=== PATIENT | male | born 1965 | race Caucasian/White ===

== ENCOUNTER 2018-04-26 00:19 | Outpatient (CLI) | payer MEDICAID, SELFPAY ==
--- NOTE | 2018-04-26 13:00 | ETT_ITS ---
*[facility]* *[facility]* [address] [place] [address] Stress Electrocardiography Dimitri protocol Date of study: 04/26/2018 *PATIENT PRESENTATION* Height: 170.2cm (67in) Blood Pressure: Weight: 81.4kg (179lb) BSA: 1.98m^2 Referring physician: Andres Atwood Ordering physician: Andres Atwood Impressions: Normal study after maximal exercise. Summary: 1. Stress: The target heart rate was achieved. Indication: R07.9. History: REASON FOR VISIT: PRE-OP SCREEN FOR A PLANNED TOOTH EXTRACTION ON TUESDAY MAY 01, 2018 IN [facility]. POSITIVE HISTORY HYPERTENSION PT WAS STARTED ON AMLODIPINE YESTERDAY. PT REPORTS OF ONE EPISODE THIS WINTER OF NON RADIATING CHEST PRESSURE SOON AFTER SHOVELING WITHOUT ANY ASSOCIATED SYMPTOMS PT WONDERS IF IT WAS MUSCLE STRAIN. Risk factors: Hypertension. ALLERGIES: NO KNOWN ALLERGIES. MEDICATIONS: AMOXICILLIN 500 MG TID UNTILL GONE FOR A CURRENT INFECTION. ASPIRIN 81 MG A DAY. AMLODIPINE BESYLATE 5 MG ONCE A DAY. NITROGLYCERIN 0.4 MG SL PRN. Protocol: Dimitri protocol. Baseline ECG: SINUS RHYTHM. HR 81 BPM. Stress protocol: + +---+ + !Stage !HR !BP (mmHg) ! + +---+ + !Baseline supine !81 !132/88 (103)! + +---+ + !Baseline standing !81 !132/88 (103)! + +---+ + !Stage I; 1.7mph, 10degrees; 3 min !114!140/90 (107)! + +---+ + !Stage II; 2.5mph, 12degrees; 3 min !118!132/90 (104)! + +---+ + !Stage III; 3.4mph, 14degrees; 3 min!132!160/95 (117)! + +---+ + !Immediate post stress !89 !140/80 (100)! + +---+ + !Recovery; 3 min !92 !150/94 (113)! + +---+ + !Recovery; 6 min !92 !138/90 (106)! + +---+ + * Stress results: Maximal heart rate during stress was 179bpm (108% of maximal predicted heart rate). The maximal predicted heart rate was 166bpm. The target heart rate was achieved. The rate-pressure product for the peak heart rate and blood pressure was 99400aq Hg/min. Stress ECG: TREADMILL PORTION OF STRESS TEST ENDED IN 9 MINUTES & 32 SECONDS BECAUSE OF SHORTNESS OF BREATH AND LEG FATIGUE. HEART RATE AND BLOOD PRESSURE RESPONSE TO EXERCISE. MAX HR = 179 % OF TARGET = 107 RARE PVC. APPROXIMATE METS ACHIEVED = 11.03 NO ANGINA NO SIGNIFICANT ST SEGMENT CHANGES AVERAGE FUNCTIONAL CAPACITY FOR EXERCISE The stress ECG is negative. Study data: Alejandra Martinez MD supervised and was readily available during the procedure. This study was interpreted by [facility]. Study status: Routine. Consent: The risks, benefits, and alternatives to the procedure were explained to the patient and informed consent was obtained. Procedure: Initial setup. A baseline ECG was recorded. Surface ECG leads and manual cuff blood pressure measurements were monitored. Heart sounds: Normal. Lung sounds: Normal. Treadmill exercise testing was performed using the Dimitri protocol. Study completion: The patient tolerated the procedure well and was discharged from the lab. Discharge: The patient left the laboratory in stable condition. Birthdate: Patient birthdate: 1965. Sex: Gender: male. Study date: Study date: 04/26/2018. Study time: 01:00 PM. Signature Documentation: The Stress ECG portion of this study was interpreted by Alejandra Martinez MD. Electronically signed by Alejandra Martinez 04/26/2018 14:44
== END 2018-04-26 00:39 ==
PROVIDERS: PCP Nurse Practitioner Family; Visit Provider Nurse Practitioner Family
DX: R07.9 Chest pain, unspecified (principal); I20.9 Angina pectoris, unspecified; I10 Essential (primary) hypertension
CPT/HCPCS: 93017

== ENCOUNTER 2018-04-27 09:08 | Outpatient (REF) | payer MEDICAID, SELFPAY ==
[2018-04-27 12:49] LABS: Abs Immature Grans 0.02 k/cumm (0.0-0.09); Absolute Basophil Count 0.04 k/cumm (0.0-0.2); Absolute Eosinophil Count 0.19 k/cumm (0.0-0.7); Absolute Lymphocyte Count 1.81 k/cumm (1.2-3.4); Absolute Monocyte Count 0.48 k/cumm (0.11-0.7); Absolute Neutrophil Count 3.48 k/cumm (1.2-6.7); Basophils % 0.7; Eosinophils % 3.2; HCT 45.7 % (40.0-50.0); HGB 15.3 g/dL (13.5-17.5); Immature Grans % 0.3; Lymphocytes % 30.1; Mean Corp. HGB Concentration 33.5 g/dL (32.0-36.0); Mean Corpuscular Volume 86.6 fL (80-95); Mean Platelet Volume 9.2 fL (8.0-11.0); Neutrophils % 57.7; Platelet Count 290 x1000/uL (130-400); RBC 5.28 m/cumm (4.50-6.00); RBC Distribution Width 13.1 % (11.8-14.1); White Blood Cell Count 6.02 k/cumm (4.4-10.8)
[2018-04-27 13:14] LABS: Anion Gap 8.2 mmol/L (3-11); BUN 17 mg/dL (7-18); CO2 29.8 mmol/L (21.0-32.0); CREATININE 1.19 mg/dL (0.70-1.30); Calcium 9.3 mg/dL (8.5-10.1); Chloride 103 mmol/L (98-107); Cholesterol 173 mg/dL (50-200); Glucose 106 mg/dL (70-100); HDL Cholesterol 54 mg/dL (40-60); LDL CHOLESTEROL 105 mg/dL (<100); Potassium 4.5 mmol/L (3.5-5.1); Sodium 141 mmol/L (136-145); Triglyceride 47 mg/dL (30-150)
== END 2018-04-27 09:28 ==
LOC: NCHCN 09:08
PROVIDERS: PCP Nurse Practitioner Family; Visit Provider Nurse Practitioner Family
DX: I20.9 Angina pectoris, unspecified (principal); R03.0 Elevated blood-pressure reading, without diagnosis of hypertension; Z00.00 Encounter for general adult medical examination without abnormal findings
CPT/HCPCS: 80048; 80061; 83721; 85025

== ENCOUNTER 2021-04-30 21:37 | Outpatient (REF) | payer MEDICAID, SELFPAY ==
[2021-04-30 20:27] LABS: ALT 27 U/L (16-63); AST 13 U/L (15-37); Albumin 4.1 g/dL (3.4-5.0); Alkaline Phosphatase 80 U/L (46-116); BUN 14 mg/dL (7-18); Bilirubin, Total 0.3 mg/dL (0.2-1.0); Calcium 9.4 mg/dL (8.5-10.1); Calculated LDL 132 mg/dL (<100); Chloride 102 mmol/L (98-107); Cholesterol 202 mg/dL (<200); Glucose 101 mg/dL (74-106); HDL Cholesterol 56 mg/dL (40-60); Potassium 4.1 mmol/L (3.5-5.1); Sodium 138 mmol/L (136-145); Total Protein 8.2 g/dL (6.4-8.2); Triglyceride 72 mg/dL (<150)
[2021-05-03 10:39] LABS: HIV-1/2 Ag & Ab Screen Negative (Negative)
[2021-05-03 10:45] LABS: Hepatitis C Ab w Rflx HCV PCR Negative (Negative)
== END 2021-04-30 21:38 | disposition home or self-care (01) ==
LOC: LBN 21:37
PROVIDERS: PCP Nurse Practitioner Family; Visit Provider Nurse Practitioner Family
DX: I10 Essential (primary) hypertension (principal); Z11.4 Encounter for screening for human immunodeficiency virus [HIV]; Z11.59 Encounter for screening for other viral diseases
CPT/HCPCS: 80053; 80061; 86803; 87389

== ENCOUNTER → 2022-03-18 18:43 | Outpatient (CLI) | payer MEDICAID, SELFPAY ==
--- NOTE | 2022-03-18 | DI.RAD_ITS ---
Exam(s) XR SHOULDER LT COMPLETE 2+V EXAM: XR SHOULDER LT COMPLETE 2+V CLINICAL HISTORY: pain in left shoulder. TECHNIQUE: 2D digital imaging was performed of the left shoulder. Four images were obtained. AP, G rashey, Y-view and axillary views were obtained. COMPARISON: No exams were available for comparison FINDINGS: BONES: No acute fracture is present. No bony destructive lesion is seen. JOINTS: No dislocation present. Mild degenerative changes of the acromioclavicular joint. SOFT TISSUE: Normal. IMPRESSION: No acute abnormality. DATA REPOSITORY: RADIATION DOSE DELIVERED:
--- NOTE | 2022-03-18 19:03 | DI.VRAD_ITS ---
PROCEDURE INFORMATION: Exam: XR Left Shoulder Exam date and time: 03/18/2022 6:49 PM Age: 56 years old Clinical indication: Other: Pain TECHNIQUE: Imaging protocol: Radiologic exam of the Left shoulder. Views: 2 or more views. COMPARISON: No relevant prior studies available. FINDINGS: Bones/joints: Mild hypertrophic change of the AC joint. The glenohumeral joint appears normal. No fracture or dislocation is noted. Soft tissues: Normal. IMPRESSION: Mild AC joint DJD. No acute fracture or dislocation. Dictated and Authenticated by: Goldy Macdonald MD. Ordering:U Unknown Unknown
== END ==
PROVIDERS: PCP Physician Assistant Medical; Visit Provider Physician Assistant Medical
DX: M25.512 Pain in left shoulder (principal); M25.812 Other specified joint disorders, left shoulder
CPT/HCPCS: 73030

== ENCOUNTER 2022-04-07 12:12 | Outpatient (CLI) | payer MEDICAID, SELFPAY ==
--- NOTE | 2022-04-07 | DI.RAD_ITS ---
Exam(s) XR CERVICAL SP COMP W FLEX/EXT EXAM: XR CERVICAL SP COMP W FLEX/EXT CLINICAL HISTORY: CERVICAL RADICULOPATHY-BILAT ARMS, M54.12, CERVICAL PAIN, M54.2. TECHNIQUE: 2D digital imaging was performed. COMPARISON: No exams were available for comparison FINDINGS: Seven views: No evidence of fracture, listhesis, nor offset of the spinal laminar line. All the disc spaces exhib it normal height. Facets unremarkable. Oblique views reveal no Luschka joint osteophytes. There ar e no cervical ribs. No osseous lesions. Cervical curvature is maintained. IMPRESSION: No significant radiograph findings in the cervical spinal column. DATA REPOSITORY: RADIATION DOSE DELIVERED:
== END 2022-04-07 12:32 ==
LOC: DI 12:14
PROVIDERS: PCP Physician Assistant Medical; Visit Provider Nurse Practitioner Family
DX: M54.12 Radiculopathy, cervical region (principal); M54.2 Cervicalgia
CPT/HCPCS: 72052

== ENCOUNTER 2022-04-27 01:30 | Outpatient (CLI) | payer MEDICAID, SELFPAY ==
--- NOTE | 2022-04-27 15:15 | DI.MRI_ITS ---
Exam(s) MR UPPER JOINT LT WO EXAM: MR UPPER JOINT LT WO CLINICAL HISTORY: PAIN IN LT SHOULDER, M25.512; RADICULOPATHY AFFECTING ARM, M54.10 TECHNIQUE: Multiplanar multisequence MRI of the shoulder was performed. COMPARISON: CR,XR XR SHOULDER LT COMPLETE 2+V from 03/18/2022 FINDINGS: MARROW:There is no evidence of fracture, Hill-Sachs deformity, nor ominous osseous lesions. ROTATOR CUFF MECHANISM: AC JOINT/ACROMIUM: There are moderate degenerative changes in the AC joint.. There is no evidence of os acromiale. Supraspinatus: There is signal abnormality in supraspinatus tendon. There is an area focal signal ab normality in the tendon just above the greater tuberosity foot pad insertional aspect which traverses most of the thickness of the tendon at this level and is either a high-grade partial thickness tear with a probable small component full-thickness tear given that there is some fluid in the overlying s ubdeltoid bursa. There is no retraction musculotendinous junction. No muscle atrophy. Infraspinatus: There is some cystic change at the musculotendinous junction but no high-grade tear. No muscle atrophy. Teres Minor: Intact. No evidence of tear nor muscle atrophy. Subscapularis/anterior cuff: Intact. No abnormal signal at the level of the multipennate insertional fibers. No significant tear nor atrophy. BICEPS TENDON: Normal position within the intertubercular groove. No tear evident. Small amount of fluid noted in the biceps tendon sheath. LABRUM: No abnormal signal within the superior labrum posterior to the biceps insertion site. Ultrasound Applications Specialist ior labrum also appears intact. There is some signal abnormality in the anterior superior labrum con sistent with probable tearing at this level. LABROLIGAMENTOUS/CAPSULAR COMPLEX: There is no evidence of avulsion of the anterior-inferior labrum, capsule, inferior glenohumeral liga ment complex nor disruption of the scapular periosteum to suggest the presence of a Bankart lesion. Also no evidence of obvious Bankart lesion variants. GLENOHUMERAL JOINT: No joint effusion nor obvious loose intra-articular bodies. No chondral defects. No osteophytes. No degenerative subarticular cysts. No evidence of capsular tear. The inferior gle nohumeral ligament is intact. QUADRILATERAL SPACE: No evidence of mass in the region of the axillary nerve and dorsal circumflex hu meral vessels. Visualized triceps muscle at this level appears unremarkable. IMPRESSION: 1. There is tear of the supraspinatus tendon just above the insertional aspect on the greater tuberos ity. This is articular surface partial tearing but there also appears to be a small full-thickness c omponent and there is some fluid in the overlying subacromial-subdeltoid bursa. There is some imping ement evident at the AC joint level. 2. Small cyst noted at the musculotendinous junction of the infraspinatus but no high-grade tear. 3. Mild anterior labral tearing. Biceps tendon is intact but contains small amount of fluid in its t endon sheath. No SLAP-type superior labral tear. 4. Mild degenerative changes in the glenohumeral joint. No loose intra-articular body evident. DATA REPOSITORY:
== END 2022-04-27 01:50 ==
LOC: DI 01:30
PROVIDERS: PCP Physician Assistant Medical; Visit Provider Nurse Practitioner Family
DX: M25.512 Pain in left shoulder (principal); M19.012 Primary osteoarthritis, left shoulder; M25.412 Effusion, left shoulder; M79.622 Pain in left upper arm; M75.102 Unspecified rotator cuff tear or rupture of left shoulder, not specified as traumatic
CPT/HCPCS: 73221

== ENCOUNTER 2022-06-17 07:33 | Day surgery (SDC) | payer MEDICAID, SELFPAY ==
[2022-06-17] VITALS (11 sets, daily range): BP systolic 135–163; BP diastolic 63–106; PULSE 62–103; RESP 14–25; TEMP 36.4–37.1; O2SAT 96–98; BMI 27.4
--- NOTE | 2022-06-17 07:17 | W.PM.DSUDISC ---
Date of service: 06/17/22 Time of Service: 16:00 Discharge Plan Discharge Details Attending Provider: Sean Smith Primary Care Provider: DENIS ARRIOLA Home Meds and New Rx's Prescriptions: New naproxen 250 mg tablet 250 - 500 mg PO BID PRNQty: 40 0RF Rx Instructions: take with a meal oxycodone 5 mg tablet 5 - 10 mg PO Q4H MDD 30 mg PRN (Reason: moderate to severe pain) Qty: 18 0RF Continued amlodipine 5 mg tablet 5 mg PO DAILY Patient Comments: TAKE ONE TABLET BY MOUTH EVERY DAY aspirin 81 mg tablet,delayed release (DR/EC) 81 mg PO DAILY Patient Comments: TAKE ONE TABLET BY MOUTH EVERY DAY Discontinued tramadol 50 mg tablet 50 mg PO BID PRN Patient Comments: TAKE ONE TABLET BY MOUTH TWICE A DAY NEEDED FOR WORST PAIN Discharge Instructions Additional Instructions: Surgery: Left shoulder arthroscopy with rotator cuff repair (bursal supraspinatus), biceps tenodesis, extensive debridement, and subacromial decompression. Activity: For 6 weeks, you should keep your arm at your side in a neutral position at all times except for physical therapy. Do not try to lift or raise your arm using your own muscles. You should use the sling whenever you are out of the house. You may have to adjust the abduction pillow or remove it for comfort. At home it is best to remove the sling and rest the arm on a pillow at your side or support the operative side with your other hand. You may allow the arm to dangle at your side. A physical therapy prescription will be sent electronically to begin in about 3 weeks. ACCELERATED protocol. Prescriptions: Aspirin 81 mg take 1 daily to prevent a blood clot for 7 days Naproxen 250 mg take 1-2 every 12 hours with a meal as needed for moderate pain Oxycodone 5 mg take 1-2 every 4-6 hours as needed for severe pain You may use dayf-wcn-fnnedes Tylenol (acetaminophen) as needed for mild pain. These pain medications may be taken all at once or in different combinations as needed. Also, recommend Colace (docusate) as a stool softener as surgery and pain medicine cause constipation. You may try qflq-nlj-spnmpft diphenhydramine (Benadryl) 25-50 mg nightly as a sleep aid Dressings: Remove shoulder bandage after 3 days. Leave the sticky Steri-Strips in place until they fall off or remove them after you shower. Cover the incisions with Band-Aids or leave them open to air. You may shower after 5 days. Follow-up: 10-[address] Smith You may take off the leg compression stockings this evening at home. You may also leave them on a few days longer if you have a history of leg swelling or edema. Let us know right away if you develop any redness, drainage, fevers, chest pain, or trouble breathing. Do not drink alcohol or drive for at least 24 hours after anesthesia. Please call the office during business hours with any questions or concerns. DS: Diagnosis Discharge Diagnosis (1) Left rotator cuff tear: Status: Acute
--- NOTE | 2022-06-17 07:19 | ROE_ITS ---
Date of service: 06/17/22 Time of Service: 12:00 Operative Note Operative Note DATE OF PROCEDURE: 06/17/22 PRE-OP DIAGNOSIS: Left: 1. Rotator cuff tear 2. LHB tendinopathy POST-OP DIAGNOSIS: same PROCEDURE: Left: 1. Rotator cuff repair, CPT# 26738. This involved repair of the supraspinatus using anchor and sutures to reattach the rotator cuff back to the footprint of the greater tuberosity. 2. Arthroscopic biceps tenodesis, CPT# 51459. This involved arthroscopically suturing and reattaching the long head of the biceps tendon to the proximal humerus at the superior margin of the bicipital groove with a screw at the correct tension. 3. Extensive debridement, CPT# 88385. This involved using arthroscopic hand instruments, power instruments, and radiofrequency instruments to release the long head of the biceps tendon and debride areas of labral tearing, synovitis, and chondromalacia about the lessor tuberosity within the glenohumeral joint anteriorly, superiorly and posteriorly. 4. Subacromial decompression with partial acromioplasty, CPT# 08407. This involved using arthroscopic power instruments and a radiofrequency wand to complete a bursectomy and smooth the undersurface of the acromion. The assistant professor of archaeology was medically required in order to help assist in techniques above, which require positioning the arm, holding the arthroscope, and manipulating multiple instruments and sutures at the same time. This cannot be done without the help of an experienced assistant professor of archaeology. SURGEON: Sean Smith TRAVEL WRITER: Genna Neves ANESTHESIA TYPE: General LMA/ETT and Primary Nerve Block Refer to Anesthesia Record ESTIMATED BLOOD LOSS: 10 PATHOLOGY: none sent COMPLICATIONS: None Patient was transported to: PACU Patient's condition: stable Implants: Arthrex: 4.75mm SwiveLocks x 2 Indications: The patient was diagnosed with the above conditions and appropriately indicated for surgical intervention. Please see complete medical record for details. Findings: Exam under anesthesia: Full range of motion, no instability Glenohumeral joint: Moderate rotator interval anterior synovitis, moderate posterior labral fraying, intra-articular biceps intact with moderate inflammation and injection especially about the biceps anchor. No displaced SLAP tear. Subscapularis with split between the upper third and bottom to third without evidence of acute injury, no fraying, no inflammation, and intact attachment to the lesser tuberosity. Mild chondromalacia about the bicipital groove near the lesser tuberosity. Intact biceps sling. Minimal articular sided supraspinatus tearing. Subacromial space: Moderate bursitis. Moderate and diffuse bursal rotator cuff fraying and injection. Moderate subacromial space narrowing. Small, but high?grade central supraspinatus tear with intact articular tissue and some la teral remnant. Intact remainder of anterior supraspinatus and infraspinatus Procedure Description: In the operating room, general anesthesia was induced. Bilateral shoulders were examined. The patient was positioned in the beachchair position. All bony prominences were well-padded. Preoperative antibiotics were administered. The shoulder was prepped and draped in the usual sterile fashion. The correct patient, procedure, and side of the procedure were all verified prior to incision. Starting through the posterior portal a standard complete diagnostic arthroscopy was performed of the glenohumeral joint including inspection of the long head of the biceps, anterior and superior labrum, subscapularis tendon, supraspinatus and infraspinatus tendons, and axillary recess. The glenoid and humeral head cartilage as well as the posterior labrum were inspected from an anterior viewing portal. Significant findings and interventions noted above. An all-arthroscopic suprapectoral biceps tenodesis was performed through an anterior portal using a Loop N Tack method with a SutureTape FiberLink cinched around and through the tendon. The biceps was tenotomized from the labrum and fixated with a suture anchor at the superior margin of the bicipital groove. Starting through the posterior portal, the arthroscope was directed into the subacromial space. A lateral 50 yard line lateral portal was created. A combination of power instruments and a radiofrequency ablator were used to debride bursitis anteriorly, posteriorly, and laterally as well as expose and smooth bone spurring on the undersurface of the acromion as well as releasing bone marrow stimulation factors for healing. The coracoacromial ligament was partially released. The bursectomy was completed viewing laterally and working from posteriorly and the rotator cuff was thoroughly inspected with findings noted above. The supraspinatus tear was carefully identified and debrided along the tissue margins to healthy stable rotator cuff repair with preparation of the under side and corresponding greater tuberosity and bony bed with both mechanical hand instruments. The tear did not propagate much anteriorly or posteriorly. There was some tissue void centrally given the remnant tissue laterally and the tear position somewhat centrally of the greater tuberosity. There was still intact articular tissue that did not probe to a complete tear at all. A speed fix type construct was used. Working through the lateral portal the self retrieving suture passer was used to shuttle a FiberTape in an inverted horizontal mattress position at the anterior and posterior aspects of the tear. An additional suture tape FiberLink in cinch mode was then passed centrally in a ripstop fashion. The sutures were brought out laterally, arm position optimized, and through the intact far lateral tissue secured to a prepunched 4.75 mm SwiveLock anchor with excellent fixation strength and appropriate reduction without over tensioning this partial rotator cuff tear repair. Repair was stable through range of motion and probing. The shoulder was drained of arthroscopic fluid. All portal sites were copiously irrigated. These incisions were closed using 3-0 Monocryl in a buried fashion and then covered with Mastisol, Steri-Strips, Xeroform, dry gauze, and ABDs. The dressings were covered and secured with Medipore tape. The operative extremity was placed into a sling for immobilization. The patient awoke from anesthesia without complication and was transferred to the recovery room in a stable condition.
--- NOTE | 2022-06-17 08:04 | W.ANESPRE ---
General Info Date of Service Date Performed: 06/17/22 Height: 5 ft 7 in Weight: 79.6 kg Body Mass Index (BMI): 27.4 Surgical Procedure: Operation Date: 06/17/22 11:40 Proposed Procedure Side Surgeon p Shoulder Rotator Cuff Arthroscopic w/Extensive Debridement, Possible Biceps Tenodesis, Subacromial Decompression Left Sean Smith MD Meds Allergies and Home Medications Allergies Allergy/AdvReac Type Severity Reaction Status Date / Time No Known Allergies Allergy Verified 06/16/22 13:51 Home Medication Medication Instructions Recorded amlodipine 5 mg tablet 5 mg PO DAILY 06/16/22 aspirin 81 mg tablet,delayed 81 mg PO DAILY 06/16/22 release tramadol 50 mg tablet 50 mg PO BID PRN 06/16/22 Current Visit Medications: Current Medications Generic Name Dose Route Start Last Admin Trade Name Freq PRN Reason Stop Dose Admin Ringer's Solution 1,000 mls @ 30 mls/hr 06/17/22 06:00 IV 06/17/22 16:00 INFUSION SERGO Cefazolin Sodium/Dextrose 2 gm in 50 mls @ 100 mls/hr 06/17/22 06:00 Ancef Duplex IVPB 06/17/22 23:59 PREOP SERGO IV Miscellaneous Supplies 1 each 06/17/22 06:00 Iv Access IV 06/17/22 23:59 DIRECTED SERGO Oxycodone HCl 0 mg 06/17/22 07:16 Oxycodone 5 Mg Tab PO Q3H PRN PRN Pain Sodium Chloride 0 ml 06/17/22 06:00 Normal Saline Flush 10 Ml Syr IV 06/17/22 23:59 PRN PRN Sodium Chloride 0 ml 06/17/22 06:00 Normal Saline 10 Ml Vial IJ 06/17/22 23:59 DIRECTED PRN Sterile Water 0 ml 06/17/22 06:00 Water,Injection,Sterile 10 Ml Vial IJ 06/17/22 23:59 DIRECTED PRN PFSH Active Problems Active Problems: Problem Status Onset Code Left rotator cuff tear M75.102 Tendinitis of long head of biceps brachii of left shoulder M75.22 Medical History Medical History (Updated 06/17/22 @ 07:48 by [place]) History of fracture of finger HTN (hypertension) Hx of fracture of leg Hx of fracture of wrist Tobacco Smoking/Tobacco Use Status: Never Alcohol Alcohol Intake: never Substance Use Substance use: Never Substance use type: does not use Vital Signs and Lab Results Vital Signs Most Recent Vital Signs in EMR: Most Recent Vital Signs Temp Pulse Resp BP Pulse Ox 36.7 C 103 H 16 148/89 H 97 06/17/22 07:50 06/17/22 07:50 06/17/22 07:50 06/17/22 07:50 06/17/22 07:50 Lab Results Blood Type / Crossmatch: No Data to Display Complete Blood Count: No Data to Display Complete Metabolic Panel: No Data to Display Liver Function Panel: No Data to Display Coagulation Panel: No Data to Display Cardiac Panel: No Data to Display Arterial Blood Gas: No Data to Display Venous Blood Gas: No Data to Display Pancreas Panel: No Data to Display Thyroid Panel: No Data to Display Infectious Disease: No Data to Display Blood Cultures: No Data to Display Toxicology Panel: No Data to Display Imaging and Studies Imaging and Studies Study information below may be from another EMR and interpreted by another provider. Please see original notes in EMR for more complete details. Stress Test Summary: 04/2018: normal study after maximal exercise. Anesthesia Assessment and Plan Anesthesia History Personal History: No History of Anesthesia Complications Family History: No Family History of Anesthesia Complications Exercise Tolerance Exercise Tolerance: Metabolic Equivalents>4 Pertinent Negatives Pertinent Negatives: No Symptoms of GERD (2-3 times a week uses [employer] for food-related GERD, no symptoms today) Cardiac & Pulmonary Exam Cardiac Exam: Normal S1/S2 Heart Sounds Pulmonary Exam: Clear Bilateral Breath Sounds Implantable Cardiac Device Does patient have a Pacemaker or an ICD?: No Airway Exam Known Difficult Airway: No Mallampati Class: 2 Mouth Opening: Normal (> 3cm) Thyromental Distance: Greater than 3 cm Facial Hair: Full Kumari Neck Range of Motion: Full ROM Neck Circumference: Normal Teeth Condition: Generalized Poor Dentition (Many missing, none loose per patient) ASA Classification ASA Score: ASA 2 Emergency Case?: No NPO Status NPO Status: NPO Clears >2 hours, Solids >8 hours Anesthesia Plan Resuscitation Status: Full Code Anesthesia Technique: General Anesthesia Airway Planned: Endotracheal Tube Pain Management: Surgeon and patient request nerve block (left interscalene block for post op pain) Monitors Used: Standard Monitors Preoperative Comments:: 56 yo male for shoulder scope. Sig PMHx: HTN (amlodipine), never smoker Plan: GAETT, brachial plexus block.
[2022-06-17] MEDS: Lactated Ringers 1,000 ML 30 ML IV (08:27)
[2022-06-17] MEDS: ceFAZolin 2 GM/50 ML BAG IVPB (11:40)
--- NOTE | 2022-06-17 12:22 | W.ANESNERVE ---
Nerve Block Single Injection Procedure Date and Time Date Performed: 06/17/22 Procedure Start: 11:09 Location Where Procedure Performed Procedure Location: Day Surgery Unit Reason Performed: Postoperative Analgesia Requesting Provider: Sean Smith Timeout Performed Timeout Performed: Yes Monitoring Used ECG, Blood Pressure, SpO2 and See EMR for corresponding vital signs Sterility Sterility: Hand Hygiene, Surgical Cap, Surgical Mask, Sterile Gloves and Chlorhexidine Sedation Given During Procedure Sedation Given (Indicate Dose Given): Versed IV Dose:: 2mg Patient Mental Status Patient Mental Status: Sedate with meaningful communication Nerve Block 1st Nerve Block: Laterality: Left Block Type: Interscalene Ultrasound Image Saved?: Yes Needle / Catheter Used: 80mm SonoPlex II Local Anesthetic Bolus (Indicate Dose Given): Lidocaine used for local infiltration of skin, Injected in 3-5ml increments after negative blood aspiration, Bupivacaine 0.5% Dose:: 10ml and Exparel Dose:: 10ml Additives (Indicate Dose Given): None Ultrasound: Sterile probe cover and gel used Nerve Stimulator: Not Used Paresthesia: None Procedure Tolerated: No Complications and Patient tolerated well Procedure Outcome: Successful Procedure Comment: Straight forward anatomy and block. Performed By: Tacos Tony
[2022-06-17] MEDS: EPINEPHrine 30 MG/30 ML VIAL (12:43)
--- NOTE | 2022-06-17 14:41 | W.ANESPOSTOP ---
Postoperative Evaluation Date, Time and Location Date Performed: 06/17/22 Time Performed: 14:42 Patient Location: Day Surgery Unit Vital Signs Most Recent Imported Vital Signs: Most Recent Vital Signs Temp Pulse Resp BP Pulse Ox 36.4 C L 62 16 163/83 H 97 06/17/22 14:13 06/17/22 14:13 06/17/22 14:13 06/17/22 14:13 06/17/22 14:13 Pain Score Most Recent Pain Score: Most Recent Pain Score Pain Level 0 06/17/22 14:13 Assessment Mental Status: Awake (Alert & Oriented to Patient Baseline) Airway and Respiratory Function: Patent airway with normal (patient baseline) respiratory exam Cardiovascular Function: Hemodynamically Stable Hydration Status: Adequately Hydrated Nausea & Vomiting: No Nausea or Vomiting Pain: Pt. Denies Any Pain Peripheral Nerve Block: Regional nerve block not resolved at time of post operative discharge
== END 2022-06-17 15:21 | disposition home or self-care (01) ==
PROVIDERS: PCP Nurse Practitioner Family; Visit Provider Student in an Organized Health Care Education/Training Program
PROC: (CPT 29827; principal; 2022-06-17 11:30)
DX: M75.102 Unspecified rotator cuff tear or rupture of left shoulder, not specified as traumatic (principal); M94.212 Chondromalacia, left shoulder; M75.52 Bursitis of left shoulder; M75.22 Bicipital tendinitis, left shoulder
CPT/HCPCS: 29827; 29826; 29828; 29823; 76942; J0690; J1100; J1885; J2250; J2370; J2405; J2704

== ENCOUNTER 2024-05-29 14:08 | Outpatient (REF) | payer MEDICAID, SELFPAY ==
[2024-05-29 19:37] LABS: Abs Immature Grans 0.02 10^3/uL (0.0-0.06); Absolute Basophil Count 0.08 10^3/uL (0.0-0.2); Absolute Eosinophil Count 0.21 10^3/uL (0.0-0.7); Absolute Lymphocyte Count 1.95 10^3/uL (1.2-3.4); Absolute Monocyte Count 0.52 10^3/uL (0.1-0.8); Absolute Neutrophil Count 4.16 10^3/uL (1.2-6.7); Basophils % 1.2 %; HCT 45.5 % (40.0-50.0); HGB 14.8 g/dL (13.5-17.5); Immature Grans % 0.3 %; Lymphocytes % 28.1 %; MCH 28.3 pg (27.0-33.0); MCHC 32.5 % (32.0-36.0); MCV 87 fL (80-95); MPV 8.8 fL (8.0-11.0); Monocytes % 7.5 %; Neutrophils % 59.9 %; Platelet Count 308 10^3/uL (130-400); RBC 5.23 10^6/uL (4.36-5.78); RDW 13.2 % (11.8-14.1); RDW-SD 42.2 fL; WBC 6.94 10^3/uL (4.4-10.8)
[2024-05-29 19:46] LABS: ALT 22 U/L (16-63); AST 21 U/L (15-37); Albumin 3.9 g/dL (3.4-5.0); Alkaline Phosphatase 77 U/L (46-116); Anion Gap 8.1 mmol/L (3-11); BUN 13 mg/dL (7-18); Bilirubin, Total 0.36 mg/dL (0.2-1.0); CO2 27.9 mmol/L (21.0-32.0); CREATININE 1.1 mg/dL (0.70-1.30); Calcium 9.7 mg/dL (8.5-10.1); Calculated LDL 118 mg/dL (<100); Chloride 104 mmol/L (98-107); Cholesterol 187 mg/dL (<200); Estimated GFR 76.85 (mL/min/1.73m2); Glucose 92 mg/dL (74-106); HDL Cholesterol 55 mg/dL (40-60); Potassium 4.2 mmol/L (3.5-5.1); Sodium 140 mmol/L (136-145); Total Protein 8.3 g/dL (6.4-8.2); Triglyceride 72 mg/dL (<150)
[2024-05-29 20:36] LABS: Hemoglobin A1C 5.6 % (<5.7)
== END 2024-05-29 14:09 | disposition home or self-care (01) ==
LOC: NCHCN 14:08
PROVIDERS: Visit Provider Nurse Practitioner Family
DX: I10 Essential (primary) hypertension (principal); E78.5 Hyperlipidemia, unspecified; Z13.1 Encounter for screening for diabetes mellitus
CPT/HCPCS: 80053; 80061; 83036; 85025